=== PATIENT | male | born 1960 | race Two or more races ===

== ENCOUNTER 2019-09-29 15:36 | Inpatient (IN) | payer MEDICAID ==
[~2019-09-29] VITALS: Ht 167.6 cm; Wt 84.0 kg
[2019-09-29] MEDS ORDERED: PIPERACILLIN/TAZ 3.375G PREMIX 50 ML IV ONE (16:00)
[2019-09-29] MEDS ORDERED: SODIUM CHLORIDE 0.9% 1000ML BAG (SEPSIS BOLUS) IV ONE (16:00)
[2019-09-29] MEDS ORDERED: VANCOMYCIN 1 G PREMIX 200 ML IV ONE (16:00)
[2019-09-29] MEDS ORDERED: HEPARIN 25,000 UNITS PREMIX 250 ML IV PRN (16:15)
[2019-09-29] MEDS ORDERED: HEPARIN 5000 UNITS/ML VIAL IV PRN ×2 (16:15)
[2019-09-29 16:51] LABS: BASOPHILS % 1.1 % (0.0-2.0); EOSINOPHILS % 0.3 % (0.0-5.0); HEMATOCRIT. 32.6 % (42.0-52.0); HEMOGLOBIN. 10.9 g/dL (14.0-18.0); LYMPHOCYTES % 12.8 % (20.0-50.0); MEAN CORPUSCULAR HEMOGLOBIN 30.4 pg (28.0-32.0); MEAN PLATELET VOLUME 7.6 fl (7.4-10.4); MONOCYTES % 3.9 % (2.0-8.0); NEUTROPHILS % 81.9 % (40.0-76.0); PLATELET 517 x1000/uL (130-400); RED BLOOD CELL COUNT 3.58 mill/uL (4.7-6.1); RED CELL DISTRIBUTION WIDTH 14.3 % (11.6-14.6)
[2019-09-29 16:59] LABS: INR 1.1; PROTHROMBIN TIME 11.2 sec (9.6-11.0)
[2019-09-29] MEDS ORDERED: HEPARIN BOLUS PRN aPTT 37-44 IV (17:00)
[2019-09-29 17:06] LABS: CHLORIDE 99 mEq/L (98-107)
[2019-09-29 17:10] LABS: ETHANOL BLOOD < 10 mg/dL
[2019-09-29] MEDS ORDERED: HEPARIN 80 UNITS/KG BOLUS IV NR (17:30)
[2019-09-29] MEDS ORDERED: NOREPINEPHRINE 8MG/250ML PMX 250 ML IV ONE (18:38)
[2019-09-29] MEDS: HEPARIN 25,000 UNITS PREMIX 250 ML IV SCH (20:06)
[2019-09-29] MEDS ORDERED: DIPHENHYDRAMINE 50MG/ML VIAL IV PRN (20:30)
[2019-09-29] MEDS ORDERED: CLONIDINE 0.1MG TABLET PO PRN (20:30)
[2019-09-29] MEDS ORDERED: ONDANSETRON HCL 4MG/2ML INJ IV PRN (20:30)
[2019-09-29] MEDS ORDERED: ACETAMINOPHEN 325MG TABLET PO PRN (20:30)
[2019-09-29 20:36] LABS: PHOSPHORUS 4.2 mg/dL (2.5-4.9)
[2019-09-29 20:47] LABS: HEPATITIS B SURFACE ANTIGEN NEGATIVE
[2019-09-29] MEDS: SODIUM CHLORIDE 0.9% 1,000 ML IV SCH (21:30)
[2019-09-29] MEDS ORDERED: IOHEXOL-350 100 ML BOTTLE ONE (23:27)
[2019-09-30] VITALS (77 sets, daily range): BP systolic 56–169; BP diastolic 35–110
[2019-09-30] MEDS ORDERED: PIPERACILLIN/TAZ 3.375G PREMIX 50 ML IV SCH
[2019-09-30] MEDS ORDERED: DEXTROSE 50% WATER 50ML SYRINGE IV PRN (00:15)
[2019-09-30 02:29] LABS: EOSINOPHILS % 0.4 % (0.0-5.0); HEMATOCRIT. 30.7 % (42.0-52.0); HEMOGLOBIN. 10.3 g/dL (14.0-18.0); LYMPHOCYTES % 15.6 % (20.0-50.0); MEAN CORPUSCULAR HEMOGLOBIN 30.6 pg (28.0-32.0); MEAN CORPUSCULAR VOLUME 91.2 fL (80.0-94.0); MONOCYTES % 6.6 % (2.0-8.0); NEUTROPHILS % 76.4 % (40.0-76.0); RED BLOOD CELL COUNT 3.37 mill/uL (4.7-6.1)
[2019-09-30] MEDS: NOREPINEPHRINE 32 MG in DEXT 5% WATER 218 ML IV PRN ×2 (02:32→18:45)
[2019-09-30] MEDS: VANCOMYCIN 750 MG PREMIX 150 ML IV SCH ×3 (02:36→17:23)
[2019-09-30 03:03] LABS: HEPATITIS B SURFACE ANTIGEN NEGATIVE
[2019-09-30] MEDS: SODIUM CHLORIDE 0.9% 1,000 ML IV SCH ×2 (03:17→15:15)
[2019-09-30] MEDS: HEPARIN BOLUS PRN aPTT <36 IV (04:19)
[2019-09-30] MEDS: HEPARIN 25,000 UNITS PREMIX 250 ML IV SCH ×2 (04:23→23:25)
[2019-09-30] MEDS: BLOOD SUGAR DIAGNOSTIC STRIP TEST SCH ×4 (06:43→21:19)
[2019-09-30] MEDS: INSULIN LISPRO (LOW DOSE) 100 UNITS/ML SUBCUT SCH ×4 (07:00→21:32)
[2019-09-30 07:54] LABS: MEAN PLATELET VOLUME 7.5 fl (7.4-10.4); PLATELET 467 x1000/uL (130-400)
[2019-09-30] MEDS: PIPERACILLIN/TAZOBACTAM 3.375 G in DEXT 5% WATER 100 ML IV SCH ×3 (09:36→21:31)
[2019-09-30 10:40] LABS: CHLORIDE 105 mEq/L (98-107)
[2019-09-30] MEDS ORDERED: PNEUMOCOCCAL 23-VAL P-SAC VAC 0.5 ML IM ONE (12:00)
[2019-10-01] VITALS (92 sets, daily range): BP systolic 52–137; BP diastolic 44–97
[2019-10-01] MEDS: VANCOMYCIN 750 MG PREMIX 150 ML IV SCH (01:16)
[2019-10-01] MEDS: PIPERACILLIN/TAZOBACTAM 3.375 G in DEXT 5% WATER 100 ML IV SCH ×4 (03:34→20:53)
[2019-10-01 06:00] LABS: CHLORIDE 106 mEq/L (98-107)
[2019-10-01] MEDS: BLOOD SUGAR DIAGNOSTIC STRIP TEST SCH ×4 (06:23→21:01)
[2019-10-01] MEDS: INSULIN LISPRO (LOW DOSE) 100 UNITS/ML SUBCUT SCH ×4 (06:54→21:05)
[2019-10-01 10:19] LABS: BASOPHILS % 1.2 % (0.0-2.0); EOSINOPHILS % 1.4 % (0.0-5.0); HEMATOCRIT. 27.1 % (42.0-52.0); HEMOGLOBIN. 9.1 g/dL (14.0-18.0); LYMPHOCYTES % 13.7 % (20.0-50.0); MEAN CORPUSCULAR HEMOGLOBIN 30.5 pg (28.0-32.0); MEAN CORPUSCULAR VOLUME 90.3 fL (80.0-94.0); MEAN PLATELET VOLUME 7.2 fl (7.4-10.4); MONOCYTES % 6.1 % (2.0-8.0); NEUTROPHILS % 77.6 % (40.0-76.0); PLATELET 434 x1000/uL (130-400); RED CELL DISTRIBUTION WIDTH 14.2 % (11.6-14.6)
[2019-10-01] MEDS: VANCOMYCIN 1 G PREMIX 200 ML IV SCH ×2 (10:51→22:00)
[2019-10-01] MEDS ORDERED: POTASSIUM CHLORIDE 20MEQ/PACKET PO NR (11:00)
[2019-10-01] MEDS: HEPARIN 25,000 UNITS PREMIX 250 ML IV SCH (15:29)
[2019-10-01] MEDS: SODIUM CHLORIDE 0.9% 1,000 ML IV SCH (17:26)
[2019-10-01] MEDS: HEPARIN BOLUS PRN aPTT <36 IV (19:41)
[2019-10-02] VITALS (82 sets, daily range): BP systolic 90–151; BP diastolic 59–106
[2019-10-02] MEDS: PIPERACILLIN/TAZOBACTAM 3.375 G in DEXT 5% WATER 100 ML IV SCH ×4 (03:00→20:58)
[2019-10-02] MEDS: HEPARIN 25,000 UNITS PREMIX 250 ML IV SCH (05:25)
[2019-10-02 05:51] LABS: BASOPHILS % 1.3 % (0.0-2.0); CHLORIDE 107 mEq/L (98-107); EOSINOPHILS % 0.5 % (0.0-5.0); HEMATOCRIT. 24.2 % (42.0-52.0); HEMOGLOBIN. 8.1 g/dL (14.0-18.0); LYMPHOCYTES % 17.5 % (20.0-50.0); MEAN CORPUSCULAR HEMOGLOBIN 30.2 pg (28.0-32.0); MEAN CORPUSCULAR VOLUME 89.8 fL (80.0-94.0); MEAN PLATELET VOLUME 7.8 fl (7.4-10.4); MONOCYTES % 5.4 % (2.0-8.0); NEUTROPHILS % 75.3 % (40.0-76.0); PLATELET 461 x1000/uL (130-400); RED BLOOD CELL COUNT 2.69 mill/uL (4.7-6.1); RED CELL DISTRIBUTION WIDTH 14.1 % (11.6-14.6)
[2019-10-02] MEDS: VANCOMYCIN 1 G PREMIX 200 ML IV SCH (06:38)
[2019-10-02] MEDS: BLOOD SUGAR DIAGNOSTIC STRIP TEST SCH ×4 (06:40→20:22)
[2019-10-02] MEDS: INSULIN LISPRO (LOW DOSE) 100 UNITS/ML SUBCUT SCH ×4 (07:02→20:21)
[2019-10-02] MEDS ORDERED: POTASSIUM CHLORIDE 20MEQ/PACKET PO NR (10:00)
[2019-10-02 15:51] LABS: CLARITY URINE CLEAR (CLEAR); COLOR URINE YELLOW (YELLOW); KETONES URINE NEGATIVE (NEGATIVE); LEUKOCYTE ESTERASE URINE NEGATIVE (NEGATIVE); NITRITE URINE NEGATIVE (NEGATIVE); OCCULT BLOOD URINE NEGATIVE (NEGATIVE); PROTEIN URINE NEGATIVE (NEGATIVE); SPECIFIC GRAVITY URINE 1.008 (1.005-1.030)
[2019-10-02] MEDS: FUROSEMIDE 20MG/2ML VIAL IVP SCH (16:26)
[2019-10-02] MEDS: VANCOMYCIN 1250MG in DEXTROSE 5% WATER 250ML IV SCH (17:34)
[2019-10-03] VITALS (37 sets, daily range): BP systolic 39–123; BP diastolic 23–78
[2019-10-03] MEDS: PIPERACILLIN/TAZOBACTAM 3.375 G in DEXT 5% WATER 100 ML IV SCH ×4 (02:47→20:54)
[2019-10-03] MEDS: SODIUM CHLORIDE 0.9% 1,000 ML IV SCH ×3 (05:02→22:00)
[2019-10-03 05:51] LABS: BASOPHILS % 1.3 % (0.0-2.0); EOSINOPHILS % 0.8 % (0.0-5.0); HEMATOCRIT. 23.5 % (42.0-52.0); HEMOGLOBIN. 7.9 g/dL (14.0-18.0); LYMPHOCYTES % 15.6 % (20.0-50.0); MEAN CORPUSCULAR HEMOGLOBIN 30.2 pg (28.0-32.0); MEAN CORPUSCULAR VOLUME 89.9 fL (80.0-94.0); MEAN PLATELET VOLUME 7.5 fl (7.4-10.4); MONOCYTES % 4.9 % (2.0-8.0); NEUTROPHILS % 77.4 % (40.0-76.0); PLATELET 443 x1000/uL (130-400); RED BLOOD CELL COUNT 2.61 mill/uL (4.7-6.1); RED CELL DISTRIBUTION WIDTH 14.4 % (11.6-14.6)
[2019-10-03 05:53] LABS: CHLORIDE 106 mEq/L (98-107)
[2019-10-03] MEDS: VANCOMYCIN 1250MG in DEXTROSE 5% WATER 250ML IV SCH (06:04)
[2019-10-03] MEDS: BLOOD SUGAR DIAGNOSTIC STRIP TEST SCH ×4 (06:46→20:39)
[2019-10-03] MEDS: FUROSEMIDE 20MG/2ML VIAL IVP SCH (08:03)
[2019-10-03] MEDS: INSULIN LISPRO (LOW DOSE) 100 UNITS/ML SUBCUT SCH ×4 (08:04→20:41)
[2019-10-03] MEDS ORDERED: POTASSIUM CHLORIDE 20MEQ TABLET SR PO NR (09:00)
[2019-10-03] MEDS: FUROSEMIDE 20MG TABLET PO SCH (09:40)
[2019-10-03] MEDS: SODIUM CHLORIDE 45ML SPRAY NS PRN (11:44)
[2019-10-03] MEDS ORDERED: OXYMETAZOLINE HCL NASAL SPRAY 15ML BOTHNSTRLS PRN (12:00)
[2019-10-03] MEDS: APIXABAN 5 MG TABLET PO SCH (17:12)
[2019-10-03] MEDS ORDERED: VANCOMYCIN 1 G PREMIX 200 ML IV SCH (21:00)
[2019-10-04] VITALS (23 sets, daily range): BP systolic 100–140; BP diastolic 45–95
[2019-10-04] MEDS: PIPERACILLIN/TAZOBACTAM 3.375 G in DEXT 5% WATER 100 ML IV SCH ×2 (05:33→08:25)
[2019-10-04 05:42] LABS: CHLORIDE 107 mEq/L (98-107)
[2019-10-04] MEDS: INSULIN LISPRO (LOW DOSE) 100 UNITS/ML SUBCUT SCH ×4 (06:40→20:19)
[2019-10-04] MEDS: BLOOD SUGAR DIAGNOSTIC STRIP TEST SCH ×4 (06:40→20:19)
[2019-10-04] MEDS: FUROSEMIDE 20MG TABLET PO SCH (08:25)
[2019-10-04] MEDS: APIXABAN 5 MG TABLET PO SCH ×2 (08:25→18:41)
[2019-10-04] MEDS ORDERED: POLYETHYLENE GLYCOL 3350 (17GM) 1 DOSE PACK PO SCH (09:00)
[2019-10-04] MEDS ORDERED: POTASSIUM CHLORIDE 20MEQ TABLET SR PO SCH (11:15)
[2019-10-04] MEDS: SODIUM CHLORIDE 45ML SPRAY NS PRN (11:43)
[2019-10-04 13:22] LABS: BASOPHILS % 0.8 % (0.0-2.0); EOSINOPHILS % 2.3 % (0.0-5.0); HEMATOCRIT. 24.8 % (42.0-52.0); HEMOGLOBIN. 8.2 g/dL (14.0-18.0); LYMPHOCYTES % 14.4 % (20.0-50.0); MEAN CORPUSCULAR HEMOGLOBIN 29.9 pg (28.0-32.0); MEAN CORPUSCULAR VOLUME 90.6 fL (80.0-94.0); MEAN PLATELET VOLUME 7.6 fl (7.4-10.4); NEUTROPHILS % 77.5 % (40.0-76.0); PLATELET 447 x1000/uL (130-400); RED BLOOD CELL COUNT 2.74 mill/uL (4.7-6.1); RED CELL DISTRIBUTION WIDTH 14.5 % (11.6-14.6)
[2019-10-05] VITALS (12 sets, daily range): BP systolic 102–154; BP diastolic 55–95
[2019-10-05] MEDS: BLOOD SUGAR DIAGNOSTIC STRIP TEST SCH ×4 (06:50→20:59)
[2019-10-05] MEDS: INSULIN LISPRO (LOW DOSE) 100 UNITS/ML SUBCUT SCH ×4 (06:53→20:40)
[2019-10-05 07:13] LABS: EOSINOPHILS % 3.8 % (0.0-5.0); HEMATOCRIT. 24.5 % (42.0-52.0); HEMOGLOBIN. 8.3 g/dL (14.0-18.0); LYMPHOCYTES % 17.1 % (20.0-50.0); MEAN CORPUSCULAR HEMOGLOBIN 30.2 pg (28.0-32.0); MEAN CORPUSCULAR VOLUME 89.1 fL (80.0-94.0); MEAN PLATELET VOLUME 7.4 fl (7.4-10.4); MONOCYTES % 5.8 % (2.0-8.0); NEUTROPHILS % 72.3 % (40.0-76.0); PLATELET 472 x1000/uL (130-400); RED BLOOD CELL COUNT 2.75 mill/uL (4.7-6.1); RED CELL DISTRIBUTION WIDTH 14.3 % (11.6-14.6)
[2019-10-05 07:32] LABS: CHLORIDE 111 mEq/L (98-107)
[2019-10-05] MEDS: FUROSEMIDE 20MG TABLET PO SCH (08:36)
[2019-10-05] MEDS: APIXABAN 5 MG TABLET PO SCH ×2 (08:36→16:05)
[2019-10-05] MEDS: POLYETHYLENE GLYCOL 3350 (17GM) 1 DOSE PACK PO SCH (12:29)
[2019-10-05] MEDS: SODIUM CHLORIDE 0.9% 1,000 ML IV SCH (16:05)
[2019-10-05 16:30] LABS: FERRITIN 946 ng/mL (22-322)
[2019-10-05 16:45] LABS: TOTAL IRON BINDING CAPACITY 223 ug/dL (250-450)
[2019-10-05 17:37] LABS: FOLIC ACID (FOLATE) SERUM > 20.00 ng/mL (>5.38)
[2019-10-05 17:38] LABS: VITAMIN B12 SERUM 555 pg/mL (211-911)
[2019-10-06] VITALS (12 sets, daily range): BP systolic 127–155; BP diastolic 76–100
[2019-10-06] MEDS: BLOOD SUGAR DIAGNOSTIC STRIP TEST SCH ×4 (06:30→20:51)
[2019-10-06] MEDS: INSULIN LISPRO (LOW DOSE) 100 UNITS/ML SUBCUT SCH ×4 (07:20→20:52)
[2019-10-06] MEDS: APIXABAN 5 MG TABLET PO SCH ×2 (09:00→17:38)
[2019-10-06] MEDS: POLYETHYLENE GLYCOL 3350 (17GM) 1 DOSE PACK PO SCH (09:00)
[2019-10-06] MEDS: FUROSEMIDE 20MG TABLET PO SCH (09:00)
[2019-10-06 10:39] LABS: BASOPHILS % 1.3 % (0.0-2.0); EOSINOPHILS % 3.9 % (0.0-5.0); HEMATOCRIT. 26.2 % (42.0-52.0); HEMOGLOBIN. 8.9 g/dL (14.0-18.0); LYMPHOCYTES % 17.3 % (20.0-50.0); MEAN CORPUSCULAR HEMOGLOBIN 30.3 pg (28.0-32.0); MEAN CORPUSCULAR VOLUME 89.2 fL (80.0-94.0); MEAN PLATELET VOLUME 7.7 fl (7.4-10.4); NEUTROPHILS % 72.5 % (40.0-76.0); PLATELET 452 x1000/uL (130-400); RED BLOOD CELL COUNT 2.94 mill/uL (4.7-6.1)
[2019-10-06 10:44] LABS: CHLORIDE 107 mEq/L (98-107)
[2019-10-06] MEDS ORDERED: POTASSIUM CHLORIDE 20MEQ TABLET SR PO NR (11:00)
[2019-10-06] MEDS ORDERED: APIX5TAB PO (11:12)
[2019-10-06] MEDS ORDERED: FURO20TA4 PO (11:12)
[2019-10-06] MEDS: SODIUM CHLORIDE 0.9% 1,000 ML IV SCH (11:52)
[2019-10-06] MEDS ORDERED: DIPHENHYDRAMINE 25MG CAPSULE PO PRN (13:30)
[2019-10-07] VITALS (10 sets, daily range): BP systolic 133–147; BP diastolic 69–110
[2019-10-07] MEDS: BLOOD SUGAR DIAGNOSTIC STRIP TEST SCH ×2 (05:55→11:52)
[2019-10-07] MEDS: INSULIN LISPRO (LOW DOSE) 100 UNITS/ML SUBCUT SCH ×2 (07:20→11:52)
[2019-10-07] MEDS: POLYETHYLENE GLYCOL 3350 (17GM) 1 DOSE PACK PO SCH (08:12)
[2019-10-07] MEDS: APIXABAN 5 MG TABLET PO SCH (08:13)
[2019-10-07] MEDS: FUROSEMIDE 20MG TABLET PO SCH (08:13)
[2019-10-07] MEDS: SODIUM CHLORIDE 0.9% 1,000 ML IV SCH (08:13)
[2019-10-07] MEDS ORDERED: FOLIC ACID 1MG TABLET PO SCH (09:00)
[2019-10-07] MEDS ORDERED: ZINC SULFATE 220 MG ( 50 ) CAPSULE PO SCH (09:00)
[2019-10-07] MEDS ORDERED: THIAMINE HCL 100MG TABLET PO SCH (09:00)
[2019-10-07] MEDS ORDERED: ASCORBIC ACID 500 MG TABLET PO SCH (09:00)
[2019-10-07 11:26] LABS: BASOPHILS % 1.3 % (0.0-2.0); EOSINOPHILS % 4.2 % (0.0-5.0); HEMATOCRIT. 29.5 % (42.0-52.0); HEMOGLOBIN. 9.8 g/dL (14.0-18.0); LYMPHOCYTES % 12.5 % (20.0-50.0); MEAN CORPUSCULAR HEMOGLOBIN 29.7 pg (28.0-32.0); MEAN CORPUSCULAR VOLUME 89.3 fL (80.0-94.0); MEAN PLATELET VOLUME 7.4 fl (7.4-10.4); MONOCYTES % 6.4 % (2.0-8.0); NEUTROPHILS % 75.6 % (40.0-76.0); PLATELET 431 x1000/uL (130-400); RED BLOOD CELL COUNT 3.31 mill/uL (4.7-6.1); RED CELL DISTRIBUTION WIDTH 14.2 % (11.6-14.6)
[2019-10-07 11:33] LABS: CHLORIDE 107 mEq/L (98-107)
[2019-10-07] MEDS ORDERED: POTASSIUM CHLORIDE 20MEQ TABLET SR PO NR (12:15)
== END 2019-10-07 16:38 | DRG 134 ==
LOC: ER 15:36 → EDBEDREQ 16:07 → EDBEDREQSVC 16:07 → EDBEDREQTM 16:07 → EDBEDREQ 19:33 → CANRESERV 20:18 → ENRESERV 20:18 → MICUSO 21:06 → EDBEDREQTM 21:09 → EDBEDREQ 21:09 → MICUSO 23:18 → MICUNO 10-01 08:31 → 3WST 10-04 15:40
PROVIDERS: ADMIT Internal Medicine; ATTEND Internal Medicine
PROC: 02HV33Z Insertion of Infusion Device into Superior Vena Cava, Percutaneous Approach (ICD-10-PCS; principal; 2019-09-29)
PROC: B548ZZA Ultrasonography of Superior Vena Cava, Guidance (ICD-10-PCS; 2019-09-29)
DX: I26.02 Saddle embolus of pulmonary artery with acute cor pulmonale (principal); I21.A1 Myocardial infarction type 2; J96.01 Acute respiratory failure with hypoxia; R57.0 Cardiogenic shock; D64.9 Anemia, unspecified; E87.2 Acidosis; E78.5 Hyperlipidemia, unspecified; I25.10 Atherosclerotic heart disease of native coronary artery without angina pectoris; D72.810 Lymphocytopenia; I11.0 Hypertensive heart disease with heart failure; I27.29 Other secondary pulmonary hypertension; K76.1 Chronic passive congestion of liver; G89.29 Other chronic pain; M54.5 Low back pain; I82.409 Acute embolism and thrombosis of unspecified deep veins of unspecified lower extremity; Z20.828 Contact with and (suspected) exposure to other viral communicable diseases; R53.81 Other malaise; R26.9 Unspecified abnormalities of gait and mobility; E11.42 Type 2 diabetes mellitus with diabetic polyneuropathy; I50.32 Chronic diastolic (congestive) heart failure; Z87.81 Personal history of (healed) traumatic fracture
CPT/HCPCS: 36415; 71045; 71275; 73502; 80048; 80053; 80061; 80202; 80320; 81003; 82040; 82270; 82607; 82728; 82746; 82962; 83540; 83550; 83605; 83735; 83880; 84100; 84134; 84145; 84443; 84484; 85025; 86703; 86803; 86850; 86900; 87340; 87635; 93005; 93306; 93970; 96365; 97116; 97162; 99291; J1644; J1815; J1940; J2543; J3370; J3490; J7030; J7060; Q9967; G0480

== ENCOUNTER 2019-10-07 16:45 | Inpatient (IN) | payer MEDICAID ==
[~2019-10-07] VITALS: Ht 165.1 cm; Wt 83.5 kg
[~2019-10-07 16:45] MED LIST: APIX5TAB PO; FURO20TA4 PO
[2019-10-07] MEDS ORDERED: CLONIDINE 0.1MG TABLET PO PRN (19:15)
[2019-10-07] MEDS ORDERED: ACETAMINOPHEN 325MG TABLET PO PRN (19:15)
[2019-10-07] MEDS ORDERED: DIPHENHYDRAMINE 25MG CAPSULE PO PRN (19:30)
[2019-10-07] MEDS ORDERED: DEXTROSE 50% WATER 50ML SYRINGE IV PRN (19:30)
[2019-10-07] MEDS ORDERED: ONDANSETRON HCL 4MG TABLET PO PRN (19:30)
[2019-10-07 21:00] VITALS: BP 144/90
[2019-10-07] MEDS ORDERED: SODIUM CHLORIDE 45ML SPRAY NS PRN (21:00)
[2019-10-07] MEDS ORDERED: OXYMETAZOLINE HCL NASAL SPRAY 15ML BOTHNSTRLS PRN (21:00)
[2019-10-07] MEDS: APIXABAN 5 MG TABLET PO SCH (21:08)
[2019-10-07] MEDS: BLOOD SUGAR DIAGNOSTIC STRIP TEST SCH (21:13)
[2019-10-07 21:30] VITALS: BP 144/90
[2019-10-08] MEDS: BLOOD SUGAR DIAGNOSTIC STRIP TEST SCH ×4 (06:28→21:11)
[2019-10-08 07:52] VITALS: BP 144/92
[2019-10-08 08:29] LABS: BASOPHILS % 1.4 % (0.0-2.0); EOSINOPHILS % 5.9 % (0.0-5.0); HEMATOCRIT. 28.2 % (42.0-52.0); HEMOGLOBIN. 9.5 g/dL (14.0-18.0); LYMPHOCYTES % 18.8 % (20.0-50.0); MEAN CORPUSCULAR HEMOGLOBIN 29.8 pg (28.0-32.0); MEAN CORPUSCULAR VOLUME 88.8 fL (80.0-94.0); MEAN PLATELET VOLUME 7.6 fl (7.4-10.4); MONOCYTES % 6.4 % (2.0-8.0); NEUTROPHILS % 67.5 % (40.0-76.0); PLATELET 430 x1000/uL (130-400); RED BLOOD CELL COUNT 3.17 mill/uL (4.7-6.1); RED CELL DISTRIBUTION WIDTH 14.6 % (11.6-14.6)
[2019-10-08 08:45] LABS: CHLORIDE 105 mEq/L (98-107)
[2019-10-08] MEDS: ZINC SULFATE 220 MG ( 50 ) CAPSULE PO SCH (08:50)
[2019-10-08] MEDS: FOLIC ACID 1MG TABLET PO SCH (08:50)
[2019-10-08] MEDS: POLYETHYLENE GLYCOL 3350 (17GM) 1 DOSE PACK PO SCH (08:50)
[2019-10-08] MEDS: FUROSEMIDE 20MG TABLET PO SCH (08:51)
[2019-10-08] MEDS: ASCORBIC ACID 500 MG TABLET PO SCH (08:51)
[2019-10-08] MEDS: APIXABAN 5 MG TABLET PO SCH ×2 (08:51→16:29)
[2019-10-08] MEDS: THIAMINE HCL 100MG TABLET PO SCH (08:51)
[2019-10-08 20:00] VITALS: BP 123/71
[2019-10-09 06:22] LABS: BASOPHILS % 2.1 % (0.0-2.0); EOSINOPHILS % 6.8 % (0.0-5.0); HEMATOCRIT. 29.1 % (42.0-52.0); HEMOGLOBIN. 9.7 g/dL (14.0-18.0); LYMPHOCYTES % 15.6 % (20.0-50.0); MEAN CORPUSCULAR HEMOGLOBIN 29.5 pg (28.0-32.0); MEAN CORPUSCULAR VOLUME 88.6 fL (80.0-94.0); MEAN PLATELET VOLUME 7.6 fl (7.4-10.4); MONOCYTES % 7.3 % (2.0-8.0); NEUTROPHILS % 68.2 % (40.0-76.0); PLATELET 410 x1000/uL (130-400); RED BLOOD CELL COUNT 3.28 mill/uL (4.7-6.1); RED CELL DISTRIBUTION WIDTH 14.8 % (11.6-14.6)
[2019-10-09 06:52] LABS: FERRITIN 701 ng/mL (22-322); PROSTRATE SPECIFIC AG TOTAL 1.33 ng/mL (0.0-4.0)
[2019-10-09 06:53] LABS: CHLORIDE 108 mEq/L (98-107); FOLIC ACID (FOLATE) SERUM >20 ng/mL ng/mL (>5.38)
[2019-10-09 07:03] LABS: PHOSPHORUS 4.3 mg/dL (2.5-4.9)
[2019-10-09 07:04] LABS: TOTAL IRON BINDING CAPACITY 276 ug/dL (250-450); VITAMIN B12 SERUM 638 pg/mL (211-911)
[2019-10-09 07:23] VITALS: BP 139/88
[2019-10-09 08:00] VITALS: BP 139/88
[2019-10-09] MEDS: POLYETHYLENE GLYCOL 3350 (17GM) 1 DOSE PACK PO SCH (08:20)
[2019-10-09] MEDS: FUROSEMIDE 20MG TABLET PO SCH (08:20)
[2019-10-09] MEDS: ASCORBIC ACID 500 MG TABLET PO SCH (08:20)
[2019-10-09] MEDS: THIAMINE HCL 100MG TABLET PO SCH (08:20)
[2019-10-09] MEDS: FOLIC ACID 1MG TABLET PO SCH (08:20)
[2019-10-09] MEDS: APIXABAN 5 MG TABLET PO SCH ×2 (08:20→16:38)
[2019-10-09] MEDS: ZINC SULFATE 220 MG ( 50 ) CAPSULE PO SCH (08:20)
[2019-10-09] MEDS: GUAIFENESIN-DM 200MG-20MG/10ML UDC PO PRN ×3 (10:04→21:57)
[2019-10-09] MEDS: BLOOD SUGAR DIAGNOSTIC STRIP TEST SCH ×3 (11:05→21:53)
[2019-10-09] MEDS ORDERED: POTASSIUM CHLORIDE 20MEQ TABLET SR PO SCH (18:00)
[2019-10-09] MEDS: FERROUS SULFATE 325MG TABLET PO SCH (18:31)
[2019-10-09 20:00] VITALS: BP 133/84
[2019-10-10] MEDS: GUAIFENESIN-DM 200MG-20MG/10ML UDC PO PRN ×5 (02:37→22:17)
[2019-10-10] MEDS: BLOOD SUGAR DIAGNOSTIC STRIP TEST SCH ×4 (06:15→20:52)
[2019-10-10] MEDS: OXYCODONE HCL 5MG TABLET PO PRN (06:45)
[2019-10-10 08:00] VITALS: BP 128/86
[2019-10-10] MEDS: POLYETHYLENE GLYCOL 3350 (17GM) 1 DOSE PACK PO SCH (08:29)
[2019-10-10] MEDS: ASCORBIC ACID 500 MG TABLET PO SCH (08:29)
[2019-10-10] MEDS: FOLIC ACID 1MG TABLET PO SCH (08:30)
[2019-10-10] MEDS: THIAMINE HCL 100MG TABLET PO SCH (08:30)
[2019-10-10] MEDS: FERROUS SULFATE 325MG TABLET PO SCH ×3 (08:30→16:44)
[2019-10-10] MEDS: FUROSEMIDE 20MG TABLET PO SCH (08:30)
[2019-10-10] MEDS: ZINC SULFATE 220 MG ( 50 ) CAPSULE PO SCH (08:30)
[2019-10-10] MEDS: APIXABAN 5 MG TABLET PO SCH ×2 (08:30→16:43)
[2019-10-10] MEDS ORDERED: ASCORBIC ACID 500 MG TABLET PO SCH (09:00)
[2019-10-10] MEDS ORDERED: NA PHOS,M-B/NA PHOS,DI-BA ENEMA 118ML PR PRN (13:45)
[2019-10-10] MEDS ORDERED: BISACODYL 5MG TABLET PO PRN (13:45)
[2019-10-10 16:13] VITALS: BP 119/76
[2019-10-10 16:14] VITALS: BP 107/68
[2019-10-10 16:15] VITALS: BP 110/64
[2019-10-10] MEDS ORDERED: COLCHICINE 0.6MG TABLET PO NR (17:00)
[2019-10-10 20:00] VITALS: BP 134/69
[2019-10-11] MEDS: OXYCODONE HCL 5MG TABLET PO PRN (05:39)
[2019-10-11] MEDS: GUAIFENESIN-DM 200MG-20MG/10ML UDC PO PRN ×3 (05:39→20:01)
[2019-10-11] MEDS: BLOOD SUGAR DIAGNOSTIC STRIP TEST SCH ×4 (05:40→20:03)
[2019-10-11 07:42] LABS: BASOPHILS % 1.7 % (0.0-2.0); EOSINOPHILS % 5.5 % (0.0-5.0); HEMATOCRIT. 30.2 % (42.0-52.0); HEMOGLOBIN. 10.1 g/dL (14.0-18.0); MEAN CORPUSCULAR HEMOGLOBIN 29.8 pg (28.0-32.0); MEAN CORPUSCULAR VOLUME 89.2 fL (80.0-94.0); MEAN PLATELET VOLUME 8.1 fl (7.4-10.4); MONOCYTES % 7.4 % (2.0-8.0); NEUTROPHILS % 58.4 % (40.0-76.0); PLATELET 430 x1000/uL (130-400); RED BLOOD CELL COUNT 3.39 mill/uL (4.7-6.1)
[2019-10-11 08:13] VITALS: BP 122/86
[2019-10-11] MEDS: COLCHICINE 0.6MG TABLET PO SCH (08:45)
[2019-10-11] MEDS: FOLIC ACID 1MG TABLET PO SCH (08:45)
[2019-10-11] MEDS: ASCORBIC ACID 500 MG TABLET PO SCH (08:45)
[2019-10-11] MEDS: APIXABAN 5 MG TABLET PO SCH ×2 (08:46→16:09)
[2019-10-11] MEDS: POLYETHYLENE GLYCOL 3350 (17GM) 1 DOSE PACK PO SCH (08:46)
[2019-10-11] MEDS: ZINC SULFATE 220 MG ( 50 ) CAPSULE PO SCH (08:46)
[2019-10-11] MEDS: FUROSEMIDE 20MG TABLET PO SCH (08:46)
[2019-10-11] MEDS: FERROUS SULFATE 325MG TABLET PO SCH ×3 (08:46→16:09)
[2019-10-11] MEDS: THIAMINE HCL 100MG TABLET PO SCH (08:47)
[2019-10-11 10:07] VITALS: BP_SYST 113; BP_SYST 115; BP_DIAS 78; BP_DIAS 83
[2019-10-11 10:08] VITALS: BP 98/71
[2019-10-11 10:08] LABS: CHLORIDE 107 mEq/L (98-107)
[2019-10-11 10:18] LABS: PHOSPHORUS 4.6 mg/dL (2.5-4.9)
[2019-10-11] MEDS: LACTULOSE 20G/30ML UDC PO PRN (17:19)
[2019-10-11 20:00] VITALS: BP 140/86
[2019-10-11] MEDS: INSULIN LISPRO 100 UNITS/ML SUBCUT PRN (20:04)
[2019-10-12] MEDS: GUAIFENESIN-DM 200MG-20MG/10ML UDC PO PRN ×2 (03:12→11:10)
[2019-10-12] MEDS: BLOOD SUGAR DIAGNOSTIC STRIP TEST SCH (05:37)
[2019-10-12] MEDS: INSULIN LISPRO 100 UNITS/ML SUBCUT PRN (05:38)
[2019-10-12 07:33] VITALS: BP 131/84
[2019-10-12] MEDS: FOLIC ACID 1MG TABLET PO SCH (08:40)
[2019-10-12] MEDS: THIAMINE HCL 100MG TABLET PO SCH (08:40)
[2019-10-12] MEDS: COLCHICINE 0.6MG TABLET PO SCH (08:40)
[2019-10-12] MEDS: POLYETHYLENE GLYCOL 3350 (17GM) 1 DOSE PACK PO SCH (08:40)
[2019-10-12] MEDS: ASCORBIC ACID 500 MG TABLET PO SCH (08:40)
[2019-10-12] MEDS: FERROUS SULFATE 325MG TABLET PO SCH ×3 (08:41→16:15)
[2019-10-12] MEDS: ZINC SULFATE 220 MG ( 50 ) CAPSULE PO SCH (08:41)
[2019-10-12] MEDS: FUROSEMIDE 20MG TABLET PO SCH (08:41)
[2019-10-12] MEDS: APIXABAN 5 MG TABLET PO SCH ×2 (08:41→16:15)
[2019-10-12] MEDS: GUAIFENESIN 200MG TABLET PO SCH ×2 (15:02→20:46)
[2019-10-12] MEDS: FLUTICASONE PROPIONATE 50MCG/SPRAY BOTTLE BOTHNSTRLS SCH (15:02)
[2019-10-12 16:18] VITALS: BP 136/83
[2019-10-12 16:20] VITALS: BP 128/83
[2019-10-12 16:22] VITALS: BP 115/83
[2019-10-12 20:00] VITALS: BP 123/78
[2019-10-13] MEDS: GUAIFENESIN 200MG TABLET PO SCH ×7 (00:05→20:38)
[2019-10-13] MEDS: GUAIFENESIN-DM 200MG-20MG/10ML UDC PO PRN ×8 (01:44→20:39)
[2019-10-13 04:06] LABS: 25-HYDROXY VITAMIN D3 26 ng/mL (.)
[2019-10-13 07:09] LABS: BASOPHILS % 1.9 % (0.0-2.0); EOSINOPHILS % 5.1 % (0.0-5.0); HEMATOCRIT. 30.6 % (42.0-52.0); HEMOGLOBIN. 10.2 g/dL (14.0-18.0); LYMPHOCYTES % 28.2 % (20.0-50.0); MEAN CORPUSCULAR HEMOGLOBIN 29.3 pg (28.0-32.0); MEAN CORPUSCULAR VOLUME 87.5 fL (80.0-94.0); MEAN PLATELET VOLUME 8.1 fl (7.4-10.4); NEUTROPHILS % 57.8 % (40.0-76.0); PLATELET 458 x1000/uL (130-400); RED CELL DISTRIBUTION WIDTH 14.7 % (11.6-14.6)
[2019-10-13 08:00] VITALS: BP 129/88
[2019-10-13] MEDS: ZINC SULFATE 220 MG ( 50 ) CAPSULE PO SCH (08:13)
[2019-10-13] MEDS: POLYETHYLENE GLYCOL 3350 (17GM) 1 DOSE PACK PO SCH (08:13)
[2019-10-13] MEDS: COLCHICINE 0.6MG TABLET PO SCH (08:13)
[2019-10-13] MEDS: ASCORBIC ACID 500 MG TABLET PO SCH (08:13)
[2019-10-13] MEDS: THIAMINE HCL 100MG TABLET PO SCH (08:13)
[2019-10-13] MEDS: LACTULOSE 20G/30ML UDC PO PRN (08:13)
[2019-10-13] MEDS: FOLIC ACID 1MG TABLET PO SCH (08:14)
[2019-10-13] MEDS: FUROSEMIDE 20MG TABLET PO SCH (08:14)
[2019-10-13] MEDS: FERROUS SULFATE 325MG TABLET PO SCH ×3 (08:14→16:46)
[2019-10-13] MEDS: CELECOXIB 100MG CAPSULE PO SCH ×2 (08:14→16:46)
[2019-10-13] MEDS: APIXABAN 5 MG TABLET PO SCH ×2 (08:14→16:45)
[2019-10-13 08:16] LABS: CHLORIDE 105 mEq/L (98-107)
[2019-10-13] MEDS: FLUTICASONE PROPIONATE 50MCG/SPRAY BOTTLE BOTHNSTRLS SCH (08:16)
[2019-10-13 08:23] LABS: PHOSPHORUS 4.3 mg/dL (2.5-4.9)
[2019-10-13 08:29] LABS: CREATINE KINASE MB FRACTION < 1.0 ng/mL (0.5-3.6)
[2019-10-13] MEDS ORDERED: ERGOCALCIFEROL 50000UNITS CAPSULE PO SCH (14:15)
[2019-10-13] MEDS ORDERED: LOPERAMIDE HCL 2MG CAPSULE PO PRN (18:00)
[2019-10-13 20:00] VITALS: BP 122/78
[2019-10-14] MEDS: GUAIFENESIN 200MG TABLET PO SCH ×6 (00:39→20:00)
[2019-10-14 06:11] LABS: BASOPHILS % 2.3 % (0.0-2.0); EOSINOPHILS % 5.1 % (0.0-5.0); HEMATOCRIT. 29.8 % (42.0-52.0); LYMPHOCYTES % 30.1 % (20.0-50.0); MEAN CORPUSCULAR HEMOGLOBIN 29.6 pg (28.0-32.0); MEAN CORPUSCULAR VOLUME 88.1 fL (80.0-94.0); MONOCYTES % 6.9 % (2.0-8.0); NEUTROPHILS % 55.6 % (40.0-76.0); PLATELET 430 x1000/uL (130-400); RED BLOOD CELL COUNT 3.39 mill/uL (4.7-6.1); RED CELL DISTRIBUTION WIDTH 14.9 % (11.6-14.6)
[2019-10-14 06:22] LABS: CHLORIDE 105 mEq/L (98-107)
[2019-10-14 08:00] VITALS: BP 124/80
[2019-10-14] MEDS: ASCORBIC ACID 500 MG TABLET PO SCH (08:15)
[2019-10-14] MEDS: THIAMINE HCL 100MG TABLET PO SCH (08:15)
[2019-10-14] MEDS: APIXABAN 5 MG TABLET PO SCH ×2 (08:15→16:18)
[2019-10-14] MEDS: CELECOXIB 100MG CAPSULE PO SCH ×2 (08:15→16:20)
[2019-10-14] MEDS: ZINC SULFATE 220 MG ( 50 ) CAPSULE PO SCH (08:15)
[2019-10-14] MEDS: FOLIC ACID 1MG TABLET PO SCH (08:15)
[2019-10-14] MEDS: FERROUS SULFATE 325MG TABLET PO SCH ×3 (08:15→16:18)
[2019-10-14] MEDS: FLUTICASONE PROPIONATE 50MCG/SPRAY BOTTLE BOTHNSTRLS SCH (08:16)
[2019-10-14 19:25] VITALS: BP 120/80
[2019-10-14] MEDS: GUAIFENESIN-DM 200MG-20MG/10ML UDC PO PRN (21:06)
[2019-10-15] MEDS: GUAIFENESIN 200MG TABLET PO SCH ×7 (04:00→23:53)
[2019-10-15] MEDS: GUAIFENESIN-DM 200MG-20MG/10ML UDC PO PRN ×2 (05:25→05:26)
[2019-10-15 07:31] VITALS: BP 133/82
[2019-10-15] MEDS: CELECOXIB 100MG CAPSULE PO SCH ×2 (08:03→16:33)
[2019-10-15] MEDS: ASCORBIC ACID 500 MG TABLET PO SCH (08:03)
[2019-10-15] MEDS: APIXABAN 5 MG TABLET PO SCH ×2 (08:03→16:33)
[2019-10-15] MEDS: FOLIC ACID 1MG TABLET PO SCH (08:03)
[2019-10-15] MEDS: FERROUS SULFATE 325MG TABLET PO SCH ×3 (08:03→16:33)
[2019-10-15] MEDS: FLUTICASONE PROPIONATE 50MCG/SPRAY BOTTLE BOTHNSTRLS SCH (08:03)
[2019-10-15] MEDS: THIAMINE HCL 100MG TABLET PO SCH (08:03)
[2019-10-15] MEDS: ZINC SULFATE 220 MG ( 50 ) CAPSULE PO SCH (08:04)
[2019-10-15 10:08] LABS: ALDOLASE 4.4 U/L (3.3-10.3); ANGIOTENSION CONVERTING ENZYME 24 U/L (14-82)
[2019-10-15 13:06] LABS: ATYPICAL P-ANCA <1:20 titer (Neg:<1:20); CYTOPLASMIC C-ANCA <1:20 titer (Neg:<1:20); LUPUS ANTICOAG INTERPRETATION Comment: (.); PERINUCLEAR P-ANCA <1:20 titer (Neg:<1:20); PTT-LA 33.2 sec (0.0-51.9)
[2019-10-15] MEDS ORDERED: OXYCODONE HCL 5MG TABLET PO PRN (14:30)
[2019-10-15 15:09] LABS: ANA IFA Negative (.); ANTI-MYELOPEROXIDASE AB < 9.0 U/mL (0.0-9.0); ANTI-PROTEINASE 3 ABS < 3.5 U/mL (0.0-3.5)
[2019-10-15 20:00] VITALS: BP 133/83
[2019-10-16 04:08] LABS: ANTI-CARDIOLIPIN AB IGG < 9 GPL U/mL (0-14); ANTI-CARDIOLIPIN AB IGM < 9 MPL U/mL (0-12)
[2019-10-16] MEDS: GUAIFENESIN 200MG TABLET PO SCH ×4 (04:14→15:04)
[2019-10-16 07:48] VITALS: BP 125/86
[2019-10-16] MEDS: THIAMINE HCL 100MG TABLET PO SCH (08:15)
[2019-10-16] MEDS: CELECOXIB 100MG CAPSULE PO SCH (08:15)
[2019-10-16] MEDS: FERROUS SULFATE 325MG TABLET PO SCH ×2 (08:15→12:32)
[2019-10-16] MEDS: FOLIC ACID 1MG TABLET PO SCH (08:15)
[2019-10-16] MEDS: APIXABAN 5 MG TABLET PO SCH (08:15)
[2019-10-16] MEDS: ASCORBIC ACID 500 MG TABLET PO SCH (08:15)
[2019-10-16] MEDS: ZINC SULFATE 220 MG ( 50 ) CAPSULE PO SCH (08:15)
[2019-10-16] MEDS: FLUTICASONE PROPIONATE 50MCG/SPRAY BOTTLE BOTHNSTRLS SCH (08:28)
[2019-10-16 09:37] VITALS: BP 125/86
== END 2019-10-16 15:25 | disposition home or self-care (01) | DRG 340 ==
PROVIDERS: ADMIT Physical Medicine & Rehabilitation Spinal Cord Injury Medicine; ATTEND Internal Medicine
DX: S72.141A Displaced intertrochanteric fracture of right femur, initial encounter for closed fracture (principal); I82.409 Acute embolism and thrombosis of unspecified deep veins of unspecified lower extremity; I95.1 Orthostatic hypotension; J96.00 Acute respiratory failure, unspecified whether with hypoxia or hypercapnia; K64.9 Unspecified hemorrhoids; K76.1 Chronic passive congestion of liver; L98.9 Disorder of the skin and subcutaneous tissue, unspecified; M19.90 Unspecified osteoarthritis, unspecified site; R57.0 Cardiogenic shock; D64.9 Anemia, unspecified; D72.829 Elevated white blood cell count, unspecified; E11.40 Type 2 diabetes mellitus with diabetic neuropathy, unspecified; E46 Unspecified protein-calorie malnutrition; E61.1 Iron deficiency; E78.5 Hyperlipidemia, unspecified; F10.20 Alcohol dependence, uncomplicated; G62.9 Polyneuropathy, unspecified; R26.9 Unspecified abnormalities of gait and mobility; R53.81 Other malaise; W18.39XA Other fall on same level, initial encounter; E55.9 Vitamin D deficiency, unspecified; G89.4 Chronic pain syndrome; I11.0 Hypertensive heart disease with heart failure; I21.4 Non-ST elevation (NSTEMI) myocardial infarction; M77.32 Calcaneal spur, left foot; I25.10 Atherosclerotic heart disease of native coronary artery without angina pectoris; I26.92 Saddle embolus of pulmonary artery without acute cor pulmonale; I50.32 Chronic diastolic (congestive) heart failure; M51.36 Other intervertebral disc degeneration, lumbar region; Z96.641 Presence of right artificial hip joint; Z82.49 Family history of ischemic heart disease and other diseases of the circulatory system; Z87.81 Personal history of (healed) traumatic fracture; Y93.89 Activity, other specified; Y92.89 Other specified places as the place of occurrence of the external cause; Y99.8 Other external cause status; Z68.30 Body mass index [BMI] 30.0-30.9, adult
CPT/HCPCS: 36415; 72110; 73502; 73562; 73620; 73630; 80053; 82085; 82164; 82306; 82553; 82607; 82728; 82746; 82962; 83036; 83520; 83540; 83550; 83735; 84100; 84134; 84153; 84443; 84550; 85025; 85613; 85732; 86147; 86235; 86256; 86431; 93005; 97110; 97116; 97162; 97166; 97530; 97535; Q0162; G0103